=== PATIENT | female | born 1950 | race Asian ===

== ENCOUNTER → 2018-09-04 | Outpatient (CLI) | payer MEDICARE, OTHER ==
[~2018-09-04] MED LIST: AMOX1TAB16 PO; CLOP75TA3 PO; DONE5TAB5 PO; LEVO50 PO; LEVO50TA4 PO; LORA10TA7 PO; MAGN250T2 PO; MAGN250T9 PO; METO50 PO; OLAN10TA3 PO; OLAN7.5T2 PO; OMEP10 PO; OMEP20 PO; ONDA4 PO; OXYB5 PO; PARO10TA89 PO; SIMV-259 PO; SIMV-260 PO; TRAZ-219 PO; TRAZ-220 PO; VITAD1000 PO
[2018-09-04 10:01] LABS: BASOPHILS % (AUTO) 0.7 % (0.0-2.0); EOSINOPHILS % (AUTO) 5.1 % (1.0-6.0); HEMATOCRIT 33.5 % (36-46); HEMOGLOBIN 11.1 g/dL (12.0-16.0); LYMPHOCYTES # (AUTO) 2.6 K/uL (1.0-4.8); LYMPHOCYTES % (AUTO) 34.2 % (22.0-44.0); MEAN CORPUSCULAR HGB CONC 33.2 G/dL (31.0-37.0); MEAN CORPUSCULAR VOLUME 90 fL (80-100); MONOCYTES # (AUTO) 0.6 K/uL (0.1-1.0); MONOCYTES % (AUTO) 8.4 % (2.0-9.0); NEUTROPHILS # (AUTO) 3.9 K/uL (1.8-7.7); NEUTROPHILS % (AUTO) 51.6 % (40.0-70.0); RED BLOOD CELL COUNT(AUTO) 3.71 MIL/uL (4.00-5.20); RED CELL DISTRIBUTION WIDTH 13.2 % (11.5-14.5)
[2018-09-04 10:10] LABS: HEMOGLOBIN A1C 6.4 % (4.5-6.2)
[2018-09-04 10:27] LABS: PLATELET COUNT (AUTO) 308 K/uL (150-450)
[2018-09-04 10:30] LABS: ALANINE AMINOTRANSFERASE 26 U/L (12-78); ALBUMIN 3.4 g/dL (3.4-5.0); ALKALINE PHOSPHATASE 82 U/L (46-116); ANION GAP 11 mmol/L (8-16); ASPARTATE AMINOTRANSFERASE 28 U/L (15-37); BILIRUBIN,TOTAL 0.2 mg/dL (0.1-1.0); CALCIUM, TOTAL 9.6 mg/dL (8.8-10.5); CARBON DIOXIDE 24 mmol/L (22-29); CHLORIDE 94 mmol/L (98-107); CHOL/HDL RATIO 2.9 (3.9-5.7); CHOLESTEROL 226 mg/dL (131-200); CREATININE 0.73 mg/dL (0.60-1.30); FREE T4 (FREE THYROXINE) 1.12 ng/dL (0.76-1.46); GLOMERULAR FILTR. RATE CALC > 60 mL/min (>60); GLUCOSE,RANDOM 93 mg/dL (70-110); HDL CHOLESTEROL 77 mg/dL (40-60); LDL CHOL (CALC.) 137 mg/dL (0-130); POTASSIUM 4.8 mmol/L (3.5-5.1); SODIUM SERUM 129 mmol/L (136-145); THYROID STIMULATING HORMONE 0.92 uIU/mL (0.36-3.74); TOTAL PROTEIN, SERUM 7.8 g/dL (6.4-8.2); TRIGLYCERIDES 58 mg/dL (15-150); UREA NITROGEN, BLOOD 19 mg/dL (7-18)
== END | disposition home or self-care (01) ==
LOC: LABPV 07:50
PROVIDERS: ATTEND Internal Medicine Cardiovascular Disease
DX: E55.9 Vitamin D deficiency, unspecified (principal); I11.0 Hypertensive heart disease with heart failure; I50.9 Heart failure, unspecified; E11.9 Type 2 diabetes mellitus without complications; D56.5 Hemoglobin E-beta thalassemia
CPT/HCPCS: 82306; 83036; 83735; 84439; 84443

== ENCOUNTER 2019-11-21 17:10 | Inpatient (IN) | payer MEDICARE, OTHER ==
[~2019-11-21] VITALS: Ht 160 cm; Wt 76.2 kg
[~2019-11-21 17:10] MED LIST changes: +CHOL100018 PO; +ONDA-104 PO; -ONDA4 PO; -TRAZ-219 PO; -TRAZ-220 PO; +TRAZ-252 PO; +TRAZ-257 PO; -VITAD1000 PO
[2019-11-21 20:13] LABS: BASOPHILS % (AUTO) 0.5 % (0.0-2.0); EOSINOPHILS % (AUTO) 0.5 % (1.0-6.0); HEMATOCRIT 35.7 % (36-46); HEMOGLOBIN 11.7 g/dL (12.0-16.0); LYMPHOCYTES # (AUTO) 1.8 K/uL (1.0-4.8); LYMPHOCYTES % (AUTO) 32.5 % (22.0-44.0); MEAN CORPUSCULAR HGB CONC 32.8 G/dL (31.0-37.0); MEAN CORPUSCULAR VOLUME 95 fL (80-100); MONOCYTES # (AUTO) 0.3 K/uL (0.1-1.0); NEUTROPHILS # (AUTO) 3.4 K/uL (1.8-7.7); NEUTROPHILS % (AUTO) 60.5 % (40.0-70.0); PLATELET COUNT (AUTO) 213 K/uL (150-450); RED BLOOD CELL COUNT(AUTO) 3.78 MIL/uL (4.00-5.20); RED CELL DISTRIBUTION WIDTH 13.8 % (11.5-14.5)
[2019-11-21] MEDS ORDERED: SODIUM CHLORIDE 0.9% 2,000 ML IV ONE (20:15)
[2019-11-21] MEDS ORDERED: MEMA10TA11 PO (20:42)
[2019-11-21] MEDS ORDERED: DOCU-275 PO (20:42)
[2019-11-21] MEDS ORDERED: PANT-31 PO (20:42)
[2019-11-21] MEDS ORDERED: ASPI-728 PO (20:42)
[2019-11-21] MEDS ORDERED: EZET10TA13 PO (20:42)
[2019-11-21] MEDS ORDERED: CHOL100018 PO (20:42)
[2019-11-21] MEDS ORDERED: ATOR40TA28 PO (20:42)
[2019-11-21] MEDS ORDERED: BENZ0.5T44 PO (20:42)
[2019-11-21 21:03] LABS: APPEARANCE,URINE CLEAR (CLEAR); BILIRUBIN,URINE NEGATIVE (NEGATIVE); GLUCOSE, URINE (UA) NEGATIVE (NEGATIVE); KETONES,URINE NEGATIVE (NEGATIVE); LEUKOCYTE ESTERASE ,URINE NEGATIVE (NEGATIVE); NITRATE,URINE NEGATIVE (NEGATIVE); OCCULT BLOOD,URINE NEGATIVE (NEGATIVE); PROTEIN,URINE NEGATIVE (NEGATIVE); UROBILINOGEN,URINE 0.2 mg/dL (<=1.0)
[2019-11-21 21:09] LABS: BACTERIA,URINE None Seen /HPF (None Seen); RBC,URINE 0-2 /HPF (0-2); WBC,URINE 0-2 /HPF (0-5)
[2019-11-21 21:10] LABS: SQUAMOUS EPITHELIAL CELL,UR Rare /LPF (None Seen)
[2019-11-21 21:55] LABS: ANION GAP 13 mmol/L (8-16); CALCIUM, TOTAL 8.8 mg/dL (8.8-10.5); CARBON DIOXIDE 21 mmol/L (22-29); CHLORIDE 104 mmol/L (98-107); CREATININE 0.88 mg/dL (0.60-1.30); GLOMERULAR FILTR. RATE CALC > 60 mL/min (>60); GLUCOSE,RANDOM 131 mg/dL (70-110); POTASSIUM 3.2 mmol/L (3.5-5.1); SODIUM SERUM 138 mmol/L (136-145); UREA NITROGEN, BLOOD 20 mg/dL (7-18)
[2019-11-21 21:59] LABS: ACETAMINOPHEN 4 mcg/mL (10-30); ALANINE AMINOTRANSFERASE 259 U/L (12-78); ALBUMIN 3.8 g/dL (3.4-5.0); ALKALINE PHOSPHATASE 220 U/L (46-116); ASPARTATE AMINOTRANSFERASE 203 U/L (15-37); BILIRUBIN,TOTAL 0.3 mg/dL (0.1-1.0); LIPASE 111 U/L (73-393); TOTAL PROTEIN, SERUM 7.9 g/dL (6.4-8.2)
[2019-11-21] MEDS ORDERED: CefTRIAXone 1 GM/DEXTROSE 50 ML IV ONE (22:00)
[2019-11-21] MEDS ORDERED: 0.9% SODIUM CHLORIDE 10 ML SYRINGE IVP PRN (22:00)
[2019-11-21] MEDS ORDERED: SODIUM CHLORIDE 0.9% 250 ML IV ONE (22:00)
[2019-11-21] MEDS ORDERED: ONDANSETRON HCL 4 MG/2 ML VIAL IVP PRN (22:00)
[2019-11-21] MEDS: ACETAMINOPHEN 325 MG TABLET PO PRN (22:05)
[2019-11-21 22:14] LABS: GLUCOMETER DEV NAME(LOC) AHU.; GLUCOSE,POINT OF CARE 119 MG/DL (70-110)
[2019-11-21 22:14] LABS: INFLUENZA TYPE A NEGATIVE FOR TYPE A (NEGATIVE); INFLUENZA TYPE B NEGATIVE FOR TYPE B (NEGATIVE)
[2019-11-21] MEDS ORDERED: POTASSIUM CHLORIDE 10% 40 MEQ/30 ML LIQUID UDCUP PO ONE (22:30)
[2019-11-22] MEDS: ACETAMINOPHEN 325 MG TABLET PO PRN (09:21)
[2019-11-22] MEDS ORDERED: ONDANSETRON HCL 4 MG/2 ML VIAL IVP PRN (09:30)
[2019-11-22] MEDS ORDERED: BISACODYL 10 MG RECTAL RECTAL SUPPOSITORY PR PRN (09:30)
[2019-11-22] MEDS ORDERED: ZOLPIDEM TARTRATE 5 MG TABLET PO PRN (09:30)
[2019-11-22] MEDS ORDERED: MAGNESIUM HYDROXIDE SUSPENSION 30 ML UDCUP PO PRN (09:30)
[2019-11-22 09:53] VITALS: BP 152/75
[2019-11-22 11:40] VITALS: BP 139/92
[2019-11-22] MEDS ORDERED: MECLIZINE HCL 25 MG TABLET PO PRN (12:30)
[2019-11-22] MEDS ORDERED: SODIUM CHLORIDE 0.9% 250 ML IV ONE (12:33)
[2019-11-22] MEDS: CefTRIAXone 1 GM/DEXTROSE 50 ML IV SCH (12:53)
[2019-11-22] MEDS ORDERED: CHOL100018 PO (13:21)
[2019-11-22] MEDS ORDERED: PANT20TA12 PO (13:21)
[2019-11-22] MEDS: IBUPROFEN 600 MG TABLET PO PRN ×2 (14:26→21:54)
[2019-11-22 15:32] VITALS: BP 136/71
[2019-11-22] MEDS ORDERED: HEPARIN SODIUM,PORCINE 5,000 UNITS/ML VIAL SQ SCH (16:00)
[2019-11-22] MEDS: OXYBUTYNIN CHLORIDE 5 MG TABLET PO SCH ×2 (16:08→21:54)
[2019-11-22] MEDS ORDERED: LORazepam 0.5 MG TABLET PO PRN (20:30)
[2019-11-22] MEDS ORDERED: QUEtiapine FUMARATE 25 MG TABLET PO PRN (20:30)
[2019-11-22 20:47] VITALS: BP 142/72
[2019-11-22] MEDS ORDERED: TraZODone HCL 100 MG TABLET PO SCH (21:00)
[2019-11-22] MEDS: MEMANTINE HCL 10 MG TABLET PO SCH (21:54)
[2019-11-22] MEDS: QUEtiapine FUMARATE 100 MG TABLET PO SCH (21:54)
[2019-11-22] MEDS: DOCUSATE SODIUM 100 MG CAPSULE PO SCH (21:54)
[2019-11-23] VITALS (7 sets, daily range): BP systolic 136–158; BP diastolic 57–86
[2019-11-23] MEDS: LEVOTHYROXINE SODIUM 50 MCG TABLET PO SCH (05:30)
[2019-11-23] MEDS: IBUPROFEN 600 MG TABLET PO PRN ×2 (05:31→22:10)
[2019-11-23 07:31] LABS: BASOPHILS % (AUTO) 0.5 % (0.0-2.0); EOSINOPHILS % (AUTO) 4.1 % (1.0-6.0); HEMATOCRIT 36.6 % (36-46); HEMOGLOBIN 12.1 g/dL (12.0-16.0); LYMPHOCYTES # (AUTO) 2.8 K/uL (1.0-4.8); LYMPHOCYTES % (AUTO) 43.9 % (22.0-44.0); MEAN CORPUSCULAR HEMOGLOBIN 31.2 pg (26.0-34.0); MEAN CORPUSCULAR VOLUME 95 fL (80-100); MONOCYTES # (AUTO) 0.5 K/uL (0.1-1.0); MONOCYTES % (AUTO) 7.4 % (2.0-9.0); NEUTROPHILS # (AUTO) 2.8 K/uL (1.8-7.7); NEUTROPHILS % (AUTO) 44.1 % (40.0-70.0); PLATELET COUNT (AUTO) 278 K/uL (150-450); RED BLOOD CELL COUNT(AUTO) 3.87 MIL/uL (4.00-5.20); RED CELL DISTRIBUTION WIDTH 13.9 % (11.5-14.5)
[2019-11-23] MEDS: METOPROLOL TARTRATE 50 MG TABLET PO SCH (08:18)
[2019-11-23] MEDS: DONEPEZIL HCL 5 MG TABLET PO SCH (08:18)
[2019-11-23] MEDS: AZITHROMYCIN 250 MG TABLET PO SCH (08:18)
[2019-11-23] MEDS: MEMANTINE HCL 10 MG TABLET PO SCH ×2 (08:18→20:53)
[2019-11-23] MEDS: DOCUSATE SODIUM 100 MG CAPSULE PO SCH ×2 (08:19→20:52)
[2019-11-23] MEDS: CLOPIDOGREL BISULFATE 75 MG TABLET PO SCH (08:19)
[2019-11-23] MEDS: OXYBUTYNIN CHLORIDE 5 MG TABLET PO SCH ×3 (08:19→20:53)
[2019-11-23] MEDS: CefTRIAXone 1 GM/DEXTROSE 50 ML IV SCH (08:19)
[2019-11-23 08:34] LABS: CHOL/HDL RATIO 2.3 (3.9-5.7); CHOLESTEROL 149 mg/dL (131-200); CREATINE KINASE, TOTAL ONLY 328 U/L (26-192); FREE T4 (FREE THYROXINE) 1.49 ng/dL (0.76-1.46); HDL CHOLESTEROL 64 mg/dL (40-60); LDL CHOL (CALC.) 63 mg/dL (0-130); THYROID STIMULATING HORMONE 3.31 uIU/mL (0.36-3.74); TRIGLYCERIDES 112 mg/dL (15-150)
[2019-11-23 08:50] LABS: ALANINE AMINOTRANSFERASE 269 U/L (12-78); ALBUMIN 4.2 g/dL (3.4-5.0); ALKALINE PHOSPHATASE 197 U/L (46-116); ANION GAP 10 mmol/L (8-16); ASPARTATE AMINOTRANSFERASE 150 U/L (15-37); BILIRUBIN,TOTAL 0.3 mg/dL (0.1-1.0); CALCIUM, TOTAL 9.5 mg/dL (8.8-10.5); CARBON DIOXIDE 26 mmol/L (22-29); CHLORIDE 103 mmol/L (98-107); CREATININE 0.91 mg/dL (0.60-1.30); GLOMERULAR FILTR. RATE CALC > 60 mL/min (>60); GLUCOSE,RANDOM 110 mg/dL (70-110); POTASSIUM 3.7 mmol/L (3.5-5.1); SODIUM SERUM 139 mmol/L (136-145); TOTAL PROTEIN, SERUM 8.6 g/dL (6.4-8.2); UREA NITROGEN, BLOOD 14 mg/dL (7-18)
[2019-11-23 14:08] LABS: C-REACTIVE PROTEIN QUANT 0.07 mg/dL (0.00-0.30); FERRITIN 368 ng/mL (8-252); LACTATE DEHYDROGENASE 299 U/L (81-234)
[2019-11-23] MEDS ORDERED: VANCOMYCIN HCL 1 GM/D5% WATER 200 ML IV ONE (15:00)
[2019-11-23 15:01] LABS: D-DIMER 0.33 mg/L FEU (0.00-0.50)
[2019-11-23] MEDS: QUEtiapine FUMARATE 100 MG TABLET PO SCH (20:52)
[2019-11-24 04:50] VITALS: BP 142/93
[2019-11-24] MEDS: IBUPROFEN 600 MG TABLET PO PRN ×3 (06:14→23:14)
[2019-11-24] MEDS: LEVOTHYROXINE SODIUM 50 MCG TABLET PO SCH (06:14)
[2019-11-24 07:20] LABS: BASOPHILS % (AUTO) 0.5 % (0.0-2.0); EOSINOPHILS % (AUTO) 6.2 % (1.0-6.0); HEMOGLOBIN 11.5 g/dL (12.0-16.0); LYMPHOCYTES # (AUTO) 1.7 K/uL (1.0-4.8); LYMPHOCYTES % (AUTO) 27.8 % (22.0-44.0); MEAN CORPUSCULAR HEMOGLOBIN 30.4 pg (26.0-34.0); MEAN CORPUSCULAR HGB CONC 31.9 G/dL (31.0-37.0); MEAN CORPUSCULAR VOLUME 95 fL (80-100); MONOCYTES # (AUTO) 0.4 K/uL (0.1-1.0); MONOCYTES % (AUTO) 7.1 % (2.0-9.0); NEUTROPHILS # (AUTO) 3.5 K/uL (1.8-7.7); NEUTROPHILS % (AUTO) 58.4 % (40.0-70.0); PLATELET COUNT (AUTO) 257 K/uL (150-450); RED BLOOD CELL COUNT(AUTO) 3.78 MIL/uL (4.00-5.20); RED CELL DISTRIBUTION WIDTH 13.9 % (11.5-14.5)
[2019-11-24 07:36] LABS: CALCIUM, TOTAL 9.2 mg/dL (8.8-10.5); CREATININE 0.92 mg/dL (0.60-1.30); MAGNESIUM 1.9 mg/dL (1.80-2.40); POTASSIUM 3.6 mmol/L (3.5-5.1)
[2019-11-24 08:17] VITALS: BP 171/85
[2019-11-24] MEDS: DOCUSATE SODIUM 100 MG CAPSULE PO SCH ×2 (08:50→20:11)
[2019-11-24] MEDS: VANCOMYCIN HCL 1 GM/D5% WATER 200 ML IV SCH ×2 (08:50→20:11)
[2019-11-24] MEDS: DONEPEZIL HCL 5 MG TABLET PO SCH (08:51)
[2019-11-24] MEDS: METOPROLOL TARTRATE 50 MG TABLET PO SCH (08:51)
[2019-11-24] MEDS: CLOPIDOGREL BISULFATE 75 MG TABLET PO SCH (08:51)
[2019-11-24] MEDS: MEMANTINE HCL 10 MG TABLET PO SCH ×2 (08:51→20:11)
[2019-11-24] MEDS: AZITHROMYCIN 250 MG TABLET PO SCH (08:53)
[2019-11-24] MEDS: OXYBUTYNIN CHLORIDE 5 MG TABLET PO SCH ×3 (08:55→20:11)
[2019-11-24] MEDS: CefTRIAXone 1 GM/DEXTROSE 50 ML IV SCH (10:48)
[2019-11-24 11:22] VITALS: BP 140/72
[2019-11-24] MEDS: BENZONATATE 100 MG CAPSULE PO PRN ×2 (15:49→23:17)
[2019-11-24 15:59] VITALS: BP 149/82
[2019-11-24] MEDS: QUEtiapine FUMARATE 100 MG TABLET PO SCH (20:11)
[2019-11-24 20:20] VITALS: BP 150/87
[2019-11-25 00:45] VITALS: BP 120/73
[2019-11-25 04:35] VITALS: BP 146/87
[2019-11-25] MEDS: LEVOTHYROXINE SODIUM 50 MCG TABLET PO SCH (06:18)
[2019-11-25 06:54] LABS: BASOPHILS % (AUTO) 0.5 % (0.0-2.0); EOSINOPHILS % (AUTO) 6.6 % (1.0-6.0); HEMATOCRIT 36.5 % (36-46); HEMOGLOBIN 11.9 g/dL (12.0-16.0); LYMPHOCYTES # (AUTO) 2.9 K/uL (1.0-4.8); LYMPHOCYTES % (AUTO) 31.9 % (22.0-44.0); MEAN CORPUSCULAR HEMOGLOBIN 31.1 pg (26.0-34.0); MEAN CORPUSCULAR HGB CONC 32.6 G/dL (31.0-37.0); MEAN CORPUSCULAR VOLUME 95 fL (80-100); MONOCYTES # (AUTO) 0.7 K/uL (0.1-1.0); MONOCYTES % (AUTO) 7.8 % (2.0-9.0); NEUTROPHILS # (AUTO) 4.9 K/uL (1.8-7.7); NEUTROPHILS % (AUTO) 53.2 % (40.0-70.0); PLATELET COUNT (AUTO) 274 K/uL (150-450); RED BLOOD CELL COUNT(AUTO) 3.84 MIL/uL (4.00-5.20)
[2019-11-25 07:35] LABS: ALANINE AMINOTRANSFERASE 157 U/L (12-78); ALBUMIN 3.5 g/dL (3.4-5.0); ALKALINE PHOSPHATASE 167 U/L (46-116); ANION GAP 10 mmol/L (8-16); ASPARTATE AMINOTRANSFERASE 54 U/L (15-37); BILIRUBIN,TOTAL 0.3 mg/dL (0.1-1.0); CALCIUM, TOTAL 9.2 mg/dL (8.8-10.5); CARBON DIOXIDE 29 mmol/L (22-29); CHLORIDE 101 mmol/L (98-107); CREATININE 0.87 mg/dL (0.60-1.30); FERRITIN 169 ng/mL (8-252); GLOMERULAR FILTR. RATE CALC > 60 mL/min (>60); GLUCOSE,RANDOM 87 mg/dL (70-110); SODIUM SERUM 140 mmol/L (136-145); TOTAL PROTEIN, SERUM 7.9 g/dL (6.4-8.2); UREA NITROGEN, BLOOD 19 mg/dL (7-18); VANCOMYCIN,RANDOM 20.9 mcg/mL (25.0-50.0)
[2019-11-25 07:36] VITALS: BP 141/72
[2019-11-25 07:36] LABS: C-REACTIVE PROTEIN QUANT < 0.05 mg/dL (0.00-0.30)
[2019-11-25] MEDS: DOCUSATE SODIUM 100 MG CAPSULE PO SCH ×2 (07:57→20:50)
[2019-11-25] MEDS: METOPROLOL TARTRATE 50 MG TABLET PO SCH (08:09)
[2019-11-25] MEDS: OXYBUTYNIN CHLORIDE 5 MG TABLET PO SCH ×3 (08:09→21:54)
[2019-11-25] MEDS: DONEPEZIL HCL 5 MG TABLET PO SCH (08:09)
[2019-11-25] MEDS: BENZONATATE 100 MG CAPSULE PO PRN ×2 (08:09→16:18)
[2019-11-25] MEDS: AZITHROMYCIN 250 MG TABLET PO SCH (08:09)
[2019-11-25] MEDS: IBUPROFEN 600 MG TABLET PO PRN ×2 (08:09→16:18)
[2019-11-25] MEDS: MEMANTINE HCL 10 MG TABLET PO SCH ×2 (08:09→20:50)
[2019-11-25] MEDS: CLOPIDOGREL BISULFATE 75 MG TABLET PO SCH (08:10)
[2019-11-25] MEDS: VANCOMYCIN HCL 1 GM/D5% WATER 200 ML IV SCH ×2 (08:10→20:50)
[2019-11-25] MEDS: CefTRIAXone 1 GM/DEXTROSE 50 ML IV SCH (09:52)
[2019-11-25 11:11] VITALS: BP 124/74
[2019-11-25 16:28] VITALS: BP 140/74
[2019-11-25 20:24] VITALS: BP 151/88
[2019-11-25] MEDS: QUEtiapine FUMARATE 200 MG TABLET PO SCH (20:50)
[2019-11-26 00:07] VITALS: BP 119/61
[2019-11-26] MEDS: IBUPROFEN 600 MG TABLET PO PRN ×2 (00:37→21:39)
[2019-11-26] MEDS: BENZONATATE 100 MG CAPSULE PO PRN ×4 (00:37→21:39)
[2019-11-26 05:02] VITALS: BP 137/68
[2019-11-26] MEDS: LEVOTHYROXINE SODIUM 50 MCG TABLET PO SCH (05:51)
[2019-11-26 06:59] LABS: BASOPHILS % (AUTO) 0.6 % (0.0-2.0); EOSINOPHILS % (AUTO) 6.3 % (1.0-6.0); HEMOGLOBIN 11.1 g/dL (12.0-16.0); LYMPHOCYTES # (AUTO) 2.1 K/uL (1.0-4.8); LYMPHOCYTES % (AUTO) 32.8 % (22.0-44.0); MEAN CORPUSCULAR HEMOGLOBIN 30.8 pg (26.0-34.0); MEAN CORPUSCULAR HGB CONC 32.5 G/dL (31.0-37.0); MEAN CORPUSCULAR VOLUME 95 fL (80-100); MONOCYTES # (AUTO) 0.5 K/uL (0.1-1.0); MONOCYTES % (AUTO) 8.5 % (2.0-9.0); NEUTROPHILS # (AUTO) 3.3 K/uL (1.8-7.7); NEUTROPHILS % (AUTO) 51.8 % (40.0-70.0); PLATELET COUNT (AUTO) 261 K/uL (150-450); RED BLOOD CELL COUNT(AUTO) 3.59 MIL/uL (4.00-5.20); RED CELL DISTRIBUTION WIDTH 14.3 % (11.5-14.5)
[2019-11-26 07:14] LABS: ALANINE AMINOTRANSFERASE 116 U/L (12-78); ALBUMIN 3.4 g/dL (3.4-5.0); ALKALINE PHOSPHATASE 158 U/L (46-116); ANION GAP 10 mmol/L (8-16); ASPARTATE AMINOTRANSFERASE 39 U/L (15-37); BILIRUBIN,TOTAL 0.3 mg/dL (0.1-1.0); CARBON DIOXIDE 26 mmol/L (22-29); CHLORIDE 103 mmol/L (98-107); CREATININE 0.72 mg/dL (0.60-1.30); GLOMERULAR FILTR. RATE CALC > 60 mL/min (>60); GLUCOSE,RANDOM 92 mg/dL (70-110); POTASSIUM 3.9 mmol/L (3.5-5.1); SODIUM SERUM 139 mmol/L (136-145); TOTAL PROTEIN, SERUM 7.6 g/dL (6.4-8.2); UREA NITROGEN, BLOOD 20 mg/dL (7-18)
[2019-11-26] MEDS: MEMANTINE HCL 10 MG TABLET PO SCH ×2 (07:48→21:39)
[2019-11-26] MEDS: DONEPEZIL HCL 5 MG TABLET PO SCH (07:48)
[2019-11-26] MEDS: DOCUSATE SODIUM 100 MG CAPSULE PO SCH ×2 (07:48→21:00)
[2019-11-26] MEDS: OXYBUTYNIN CHLORIDE 5 MG TABLET PO SCH ×3 (07:48→21:38)
[2019-11-26] MEDS: AZITHROMYCIN 250 MG TABLET PO SCH (07:48)
[2019-11-26] MEDS: METOPROLOL TARTRATE 50 MG TABLET PO SCH (07:48)
[2019-11-26] MEDS: CLOPIDOGREL BISULFATE 75 MG TABLET PO SCH (07:48)
[2019-11-26] MEDS: VANCOMYCIN HCL 1 GM/D5% WATER 200 ML IV SCH (07:48)
[2019-11-26 07:58] VITALS: BP 135/72
[2019-11-26] MEDS: CefTRIAXone 1 GM/DEXTROSE 50 ML IV SCH (10:32)
[2019-11-26 12:34] VITALS: BP 127/68
[2019-11-26 15:36] VITALS: BP 141/80
[2019-11-26 20:30] VITALS: BP 143/66
[2019-11-26] MEDS: QUEtiapine FUMARATE 200 MG TABLET PO SCH (21:39)
[2019-11-27 00:20] VITALS: BP 132/72
[2019-11-27] MEDS: BENZONATATE 100 MG CAPSULE PO PRN ×2 (03:48→11:43)
[2019-11-27 04:45] VITALS: BP 113/65
[2019-11-27] MEDS: IBUPROFEN 600 MG TABLET PO PRN (06:39)
[2019-11-27] MEDS: LEVOTHYROXINE SODIUM 50 MCG TABLET PO SCH (06:39)
[2019-11-27 07:45] VITALS: BP 115/72
[2019-11-27 07:59] LABS: BASOPHILS % (AUTO) 0.7 % (0.0-2.0); EOSINOPHILS % (AUTO) 6.8 % (1.0-6.0); HEMATOCRIT 34.8 % (36-46); HEMOGLOBIN 11.5 g/dL (12.0-16.0); LYMPHOCYTES # (AUTO) 2.4 K/uL (1.0-4.8); LYMPHOCYTES % (AUTO) 38.6 % (22.0-44.0); MEAN CORPUSCULAR HEMOGLOBIN 31.5 pg (26.0-34.0); MEAN CORPUSCULAR HGB CONC 33.1 G/dL (31.0-37.0); MEAN CORPUSCULAR VOLUME 95 fL (80-100); MONOCYTES # (AUTO) 0.6 K/uL (0.1-1.0); MONOCYTES % (AUTO) 10.4 % (2.0-9.0); NEUTROPHILS # (AUTO) 2.7 K/uL (1.8-7.7); NEUTROPHILS % (AUTO) 43.5 % (40.0-70.0); PLATELET COUNT (AUTO) 266 K/uL (150-450); RED BLOOD CELL COUNT(AUTO) 3.67 MIL/uL (4.00-5.20); RED CELL DISTRIBUTION WIDTH 14.3 % (11.5-14.5)
[2019-11-27 08:28] LABS: ANION GAP 10 mmol/L (8-16); CARBON DIOXIDE 27 mmol/L (22-29); CHLORIDE 100 mmol/L (98-107); CREATININE 0.85 mg/dL (0.60-1.30); GLUCOSE,RANDOM 99 mg/dL (70-110); POTASSIUM 3.8 mmol/L (3.5-5.1); SODIUM SERUM 137 mmol/L (136-145); UREA NITROGEN, BLOOD 22 mg/dL (7-18)
[2019-11-27 08:29] LABS: ALANINE AMINOTRANSFERASE 117 U/L (12-78); ALBUMIN 3.7 g/dL (3.4-5.0); ALKALINE PHOSPHATASE 173 U/L (46-116); ASPARTATE AMINOTRANSFERASE 39 U/L (15-37); BILIRUBIN,TOTAL 0.3 mg/dL (0.1-1.0); C-REACTIVE PROTEIN QUANT 0.14 mg/dL (0.00-0.30); FERRITIN 139 ng/mL (8-252); GLOMERULAR FILTR. RATE CALC > 60 mL/min (>60); TOTAL PROTEIN, SERUM 8.1 g/dL (6.4-8.2)
[2019-11-27] MEDS: MEMANTINE HCL 10 MG TABLET PO SCH (08:43)
[2019-11-27] MEDS: METOPROLOL TARTRATE 50 MG TABLET PO SCH (08:43)
[2019-11-27] MEDS: OXYBUTYNIN CHLORIDE 5 MG TABLET PO SCH (08:43)
[2019-11-27] MEDS: DONEPEZIL HCL 5 MG TABLET PO SCH (08:43)
[2019-11-27] MEDS: CLOPIDOGREL BISULFATE 75 MG TABLET PO SCH (08:43)
[2019-11-27] MEDS: DOCUSATE SODIUM 100 MG CAPSULE PO SCH (08:43)
[2019-11-27] MEDS ORDERED: OXYB5 PO (09:42)
[2019-11-27] MEDS ORDERED: MECL-160 PO (09:42)
[2019-11-27] MEDS ORDERED: LEVO50 PO (09:42)
[2019-11-27] MEDS ORDERED: MEMA10TA11 PO (09:42)
[2019-11-27] MEDS ORDERED: DOCU-275 PO (09:42)
[2019-11-27] MEDS ORDERED: CLOP75TA14 PO (09:42)
[2019-11-27] MEDS ORDERED: DONE5TAB33 PO (09:42)
[2019-11-27] MEDS ORDERED: METO50 PO (09:42)
[2019-11-27] MEDS ORDERED: QUET200T29 PO (09:42)
[2019-11-27 11:44] VITALS: BP 114/56
== END 2019-11-27 14:20 | disposition home or self-care (01) | DRG 871 ==
LOC: EMS 17:11 → 5N 11-22 05:00 → UNDOADMIN 11-22 06:47 → 5N 11-22 06:47 → UNDOADMIN 11-22 09:22 → 5N 11-22 09:22
PROVIDERS: ADMIT Internal Medicine Geriatric Medicine; ATTEND Internal Medicine Geriatric Medicine
DX: A41.9 Sepsis, unspecified organism (principal); J18.9 Pneumonia, unspecified organism; F20.0 Paranoid schizophrenia; B96.89 Other specified bacterial agents as the cause of diseases classified elsewhere; E03.9 Hypothyroidism, unspecified; E11.9 Type 2 diabetes mellitus without complications; E78.5 Hyperlipidemia, unspecified; E87.6 Hypokalemia; I10 Essential (primary) hypertension; I25.10 Atherosclerotic heart disease of native coronary artery without angina pectoris; Z20.828 Contact with and (suspected) exposure to other viral communicable diseases; R79.89 Other specified abnormal findings of blood chemistry; Z86.73 Personal history of transient ischemic attack (TIA), and cerebral infarction without residual deficits; Z90.49 Acquired absence of other specified parts of digestive tract
CPT/HCPCS: 70450; 76700; 80074; 82728; 83605; 83615; 83735; 84145; 84439; 84443; 85379; 86140; 87040; 87070; 87205; 87804; 93005; 93306; 93880; 99291; G0480; G0481; J0696; J2405; J3370; J7030; J7040; J7050

== ENCOUNTER → 2019-12-30 | Outpatient (CLI) | payer MEDICARE, OTHER ==
[~2019-12-30] MED LIST changes: -AMOX1TAB16 PO; +ASPI-728 PO; +ATOR40TA28 PO; +BENZ0.5T44 PO; +CLOP75TA14 PO; +DOCU-275 PO; +DONE5TAB33 PO; +EZET10TA13 PO; -MAGN250T9 PO; +MECL-160 PO; +MEMA10TA11 PO; -OLAN10TA3 PO; -OMEP10 PO; -OMEP20 PO; -ONDA-104 PO; +PANT20TA12 PO; +QUET200T29 PO; -SIMV-259 PO; -SIMV-260 PO; -TRAZ-252 PO
== END | disposition home or self-care (01) ==
LOC: RADPV 13:26
PROVIDERS: ATTEND Internal Medicine Geriatric Medicine
DX: R05 Cough (principal); R06.02 Shortness of breath; M46.04 Spinal enthesopathy, thoracic region
CPT/HCPCS: 71046; 71046-TC